=== PATIENT | female | born 1995 | race Caucasian/White ===

== ENCOUNTER 2024-12-16 10:31 | Emergency (ER) | payer MEDICAID, OTHER ==
[~2024-12-16] VITALS: Ht 172.7 cm; Wt 95.5 kg
[2024-12-16] MEDS: NS (Normal Saline) 0.9% 1,000 ML IV ONE (12:43)
[2024-12-16] MEDS: ONDANSETRON 4MG 2ML VIAL IV ONE (12:43)
[2024-12-16 12:53] LABS: BASO # 0.1 10^3/uL (0.0-0.2); BASO % 0.6 % (0.0-1.0); EOS # 0.0 10^3/uL (0.0-0.5); EOS % 0.4 % (0.0-3.0); LYMPH # 2.5 10^3/uL (1.5-5.0); LYMPH % 23.2 % (24.0-44.0); MONO # 0.4 10^3/uL (0.0-0.8); MONO % 3.9 % (2.0-8.0); NEUTROPHILS # 7.8 10^3/uL (1.5-8.5); NEUTROPHILS % 71.7 % (36.0-66.0); PLATELET COUNT, AUTOMATED 368 10^3/uL (150-450)
[2024-12-16 13:26] LABS: ALT/SGPT 21 U/L (7.0-40); AST/SGOT 19 U/L (<34); CALCIUM LEVEL 9.0 MG/DL (8.5-10.1); CARBON DIOXIDE LEVEL 26 MMOL/L (20-31); CHLORIDE LEVEL 107 MMOL/L (98-107); CK-MB VALUE MASS < 1.0 NG/ML (<3.6); CREATININE FOR GFR 0.66 MG/DL (0.55-1.30); GLOMERULAR FILTRATION RATE > 90.0 (>60); POTASSIUM SERUM 4.2 MMOL/L (3.5-5.1); SODIUM LEVEL 140 MMOL/L (136-145)
[2024-12-16 13:28] LABS: CPK CREATINE PHOSPHOKINASE 73 U/L (34-145)
[2024-12-16 13:44] LABS: HEPATITIS B SURFACE ANTIBODY NEGATIVE (POSITIVE)
[2024-12-16 14:05] LABS: Trichomonas vaginalis (AMP) NOT DETECTED (NEGATIVE)
[2024-12-16 14:09] LABS: HIV 1&2 SCREEN NEGATIVE (NEGATIVE)
[2024-12-16 14:18] LABS: HEPATITIS C VIRUS ABY INDEX < 0.02 INDEX (<0.8)
[2024-12-16 14:29] LABS: GC DNA AMPLIFICATION NEGATIVE (NEGATIVE)
[2024-12-16] MEDS: KETOROLAC 30 MG/ML 1 ML VIAL IV ONE (15:00)
[2024-12-16] MEDS ORDERED: MUPI30CR TOP (15:59)
[2024-12-16 16:00] VITALS: BP 110/66; TEMP 98.9; O2SAT 100
== END 2024-12-16 16:11 | disposition home or self-care (01) ==
LOC: M ED 10:31
DX: L01.01 Non-bullous impetigo (principal); F17.290 Nicotine dependence, other tobacco product, uncomplicated; F12.10 Cannabis abuse, uncomplicated; Z88.0 Allergy status to penicillin
CPT/HCPCS: 80048; 80076; 82550; 82553; 83690; 84484; 85025; 86706; 86780; 86803; 87340; 87389; 87486; 87581; 87633; 87661; 87798; 87810; 87850; 87880; 93005; 96361; 96374; 96375; 99284; J1885; J2405